=== PATIENT | male | born 1995 | race Hispanic/Latino ===

== ENCOUNTER 2024-08-21 09:40 | Emergency (ER) | payer OTHER ==
[~2024-08-21] VITALS: Ht 167.6 cm; Wt 84.4 kg
[2024-08-21 09:56] VITALS: PULSE 88; RESP 19; TEMP 97.4; O2SAT 100
[2024-08-21 11:44] LABS: BASOPHILS # (AUTO) 0.1 (0.0-0.1); BASOPHILS % 0.4 % (0.0-1.0); EOSINOPHILS # (AUTO) 0.1 (0.0-0.4); EOSINOPHILS % 0.4 % (0.0-6.0); HEMATOCRIT 49.5 % (38.2-49.6); HEMOGLOBIN 17.1 g/dL (14.0-18.0); LYMPHOCYTES # (AUTO) 3.9 (1.0-3.2); LYMPHOCYTES % 27.9 % (18.0-39.1); MEAN CORPUSCULAR HEMOGLOBIN 28.1 pg (28-32); MEAN CORPUSCULAR HGB CONC 34.5 g/dL (31-35); MEAN CORPUSCULAR VOLUME 81.4 fL (81-99); MONOCYTES # (AUTO) 1.1 (0.2-0.8); MONOCYTES % 7.5 % (4.4-11.3); NEUTROPHILS # (AUTO) 8.9 (2.1-6.9); NEUTROPHILS % 63.4 % (38.7-80.0); PLATELET COUNT 320 x10e3/uL (140-360); RED BLOOD COUNT 6.08 x10e6/uL (4.3-5.7); RED CELL DISTRIBUTION WIDTH 12.8 % (11.7-14.4); WHITE BLOOD COUNT 13.99 x10e3/uL (4.8-10.8)
[2024-08-21 11:57] LABS: ANION GAP 13.4 mmol/L (8-16); BILIRUBIN,TOTAL 0.8 mg/dL (0.2-1.2); CALCIUM 10.1 mg/dL (8.4-10.2); CREATININE, SERUM 1.13 mg/dL (0.72-1.25); TOTAL PROTEIN 8.6 g/dL (6.5-8.1)
[2024-08-21 12:05] LABS: POTASSIUM 3.4 mmol/L (3.5-5.1)
[2024-08-21 12:19] LABS: ALBUMIN 4.9 g/dL (3.5-5.0); ALBUMIN/GLOBULIN RATIO 1.3 (0.8-2.0)
[2024-08-21] MEDS ORDERED: PREDNISONE50 MG PO (13:42)
[2024-08-21] MEDS ORDERED: VALACYCLOVIR1000 MG PO (13:42)
[2024-08-21] MEDS ORDERED: ARTIFICIAL TEAR15 ML OD (13:43)
== END 2024-08-21 14:09 | disposition home or self-care (01) ==
LOC: ER 09:53
DX: G51.0 Bell's palsy (principal)
CPT/HCPCS: 36415; 70450; 80053; 85025; 99284

== ENCOUNTER 2025-03-02 11:22 | Emergency (ER) | payer OTHER ==
[~2025-03-02] VITALS: Ht 167.6 cm; Wt 99.8 kg
[~2025-03-02 11:22] MED LIST: ARTIFICIAL TEAR15 ML OD; PREDNISONE50 MG PO; VALACYCLOVIR1000 MG PO
[2025-03-02 12:27] VITALS: TEMP 98.1
[2025-03-02 12:40] VITALS: PULSE 73; RESP 18; O2SAT 100
[2025-03-02] MEDS ORDERED: VALTREX1000 MG PO (14:15)
[2025-03-02] MEDS ORDERED: PREDNISONE50 MG PO (14:15)
[2025-03-02] MEDS ORDERED: ARTIFICIAL TEAR15 ML OD (14:15)
== END 2025-03-02 14:00 | disposition home or self-care (01) ==
LOC: ER 12:34
DX: G51.0 Bell's palsy (principal); R20.2 Paresthesia of skin; R53.1 Weakness
CPT/HCPCS: 99282